=== PATIENT | female | born 2000 | race African-American/Black ===

== ENCOUNTER 2022-10-24 07:37 | Emergency (ER) | payer OTHER ==
[~2022-10-24] VITALS: Ht 167.6 cm; Wt 70.0 kg
[2022-10-24 07:41] VITALS: BP 135/82; PULSE 98; RESP 18; TEMP 98.1; O2SAT 100
== END 2022-10-24 09:00 | disposition left against medical advice (07) ==
LOC: ER 07:37
DX: Z53.21 Procedure and treatment not carried out due to patient leaving prior to being seen by health care provider (principal)
CPT/HCPCS: 99283